=== PATIENT | male | born 1980 | race African-American/Black ===

== ENCOUNTER 2016-06-22 10:09 | Emergency (ER) | payer SELFPAY ==
[~2016-06-22] VITALS: Ht 180.3 cm; Wt 70.0 kg
[2016-06-22 10:40] VITALS: BP 117/79
== END 2016-06-22 12:18 | disposition home or self-care (01) ==
LOC: ER 11:13
DX: K04.7 Periapical abscess without sinus (principal); R68.84 Jaw pain; R51 Headache; F17.210 Nicotine dependence, cigarettes, uncomplicated
CPT/HCPCS: 99283